=== PATIENT | female | born 1995 | race Caucasian/White ===

== ENCOUNTER 2021-01-23 08:13 | Emergency (ER) | payer OTHER ==
[~2021-01-23 08:13] MED LIST: BENTYL 20MG TAB20 MG PO; LODINE CAP 300300 MG PO; OMNICEF 300 MG300 MG PO; ZOFRAN ODT 4 MG4 MG PO; ZOFRAN4 MG PO
[2021-01-23] MEDS ORDERED: NAPROSYN500 MG PO (09:51)
== END 2021-01-23 10:05 | disposition home or self-care (01) ==
LOC: ER1 08:13
DX: S29.012A Strain of muscle and tendon of back wall of thorax, initial encounter (principal); V49.40XA Driver injured in collision with unspecified motor vehicles in traffic accident, initial encounter; Y92.410 Unspecified street and highway as the place of occurrence of the external cause
CPT/HCPCS: 72072; 96372; 99284; J1885

== ENCOUNTER → 2021-03-02 | Outpatient (CLI) | payer OTHER ==
[~2021-03-02] MED LIST changes: +NAPROSYN500 MG PO
== END ==
LOC: EMI 02-19 08:45
DX: M25.511 Pain in right shoulder (principal)
CPT/HCPCS: 73221